=== PATIENT | male | born 1970 | race Caucasian/White ===

== ENCOUNTER 2018-02-16 09:21 | Emergency (ER) | payer OTHER ==
[~2018-02-16] VITALS: Ht 182.9 cm; Wt 95.3 kg
--- NOTE | 2018-02-16 10:32 | ED GENERAL ADULT ---
See Addendum History of Present Illness General Chief Complaint: ETOH/Drug Related Complaint Stated Complaint: REQ DETOX, SENT BY HIGHWATCH Source: patient Exam Limitations: no limitations Vital Signs & Intake/Output Vital Signs & Intake/Output Vital Signs Date Time Temp Pulse Resp B/P B/P Pulse O2 O2 Flow FiO2 Mean Ox Delivery Rate 02/16 1613 98.1 105 20 139/77 02/16 1611 98.1 105 20 139/77 96 Room Air 02/16 1209 98.4 106 20 148/96 02/16 1208 98.4 106 20 148/96 95 Room Air 02/16 1045 96.8 104 18 129/79 02/16 0953 96.8 104 18 129/79 95 Room Air Room Air Allergies Coded Allergies: No Known Allergies (02/16/18) Reconcile Medications Alprazolam 0.5 MG TABLET 1 TAB PO TIDPRN ANXIETY (Reported) Triage Note: PT TO ED FOR HIGHWATCH CLEARANCE FOR ETOH, DENIES DRUG USE. "TRIED TO QUIT IN THE PAST, BUT AFTER 3-4 DAYS I HAD A SEIZURE AND WENT TO [facility] FOR A FEW DAYS AFTER THAT, ABOUT 2 WEEKS AGO". DAILY DRINKIN.7 LITERS VODKA DAILY, DENIES OTHER DRUG USE. LAST DRINK LAST NIGHT INTO THIS MORNING. Triage Nurses Notes Reviewed? yes Onset: Gradual Duration: worse persistent since (SEVERAL YEARS) Timing: recent history Injury Environment: home Severity: moderate No Modifying Factors: none HPI: Patient is a 47-year-old male with history of hypertension, presenting to the emergency department if complaint of requesting alcohol detox. Patient drinks approximately 1.75 L of vodka daily. Last drink was late last night until this morning. Patient also smokes cigarettes. Denies any other drug use. He does report that he had a seizure about 2 weeks ago and was brought to [facility] for evaluation and was admitted and left against advice. Patient decided to stop drinking alcohol in 4 days into his sobriety he had a seizure. No history prior to that of seizures. Patient does report that he takes Xanax as needed daily 0.5 mg 3 times a day that prescribed by his primary care physician who is aware that he drinks alcohol daily. Patient denying any current chest pain palpitations or shortness of breath. He does report that when he doesn't drink he gets shaky. Denies any abdominal pain or diarrhea. No urinary frequency or urgency or dysuria. Denies vision changes or hallucinations. Has been drinking for several years. (Judy Zimmerman) Past History Travel History Traveled to [place] past 21 day No Medical History Any Pertinent Medical History? see below for history Neurological: NONE EENT: NONE Cardiovascular: NONE Respiratory: NONE Gastrointestinal: GERD Hepatic: NONE Renal: NONE Musculoskeletal: NONE Psychiatric: alcohol dependence, anxiety Endocrine: NONE Blood Disorders: NONE Cancer(s): NONE METAL MACHINE OPERATOR/Reproductive: NONE Surgical History Surgical History: non-contributory Psychosocial History What is your primary language Korean Tobacco Use: Current Daily Use Daily Tobacco Use Amount/Type: => 5 Cigarettes daily ETOH Use: alcoholic Illicit Drug Use: benzodiazepines Family History Hx Contributory? No (Judy Zimmerman) Review of Systems Review of Systems Constitutional: Reports: no symptoms. Comments Review of systems: See HPI, All other systems negative. Constitutional, no chills fever or weight loss HEENT: No visual changes no sore throat no congestion Cardiovascular: No chest pain ,palpitation Skin, no jaundice no rashes Respiratory: No dyspnea cough sputum GI: No nausea no vomiting : No dysuria No hematuria Muscle skeletal: no back pain, no neck pain, Neurologic: No numbness no confusion, no headaches Psych: No INCREASED stress anxiety or depression,. Heme/endocrine: No bruising no bleeding no polyuria or polydipsia Immunology: No splenectomy or history of AIDS (Judy Zimmerman) Physical Exam Physical Exam General Appearance: well developed/nourished, no apparent distress, alert, awake , comfortable Comments: Well-developed well-nourished person in no acute distress HEENT: Pupils equally round and reactive to light and accommodation. Nose is atraumatic. Pharynx normal. No swelling or edema. Neck: Normal inspection Back: Nontender Cardiovascular: Regular rate and rhythms Respiratory: Chest nontender. No respiratory distress.breath sounds clear to auscultation bilaterally Extremity: No edema Neuro: Alert oriented x3, motor sensory normal, cranial nerves II through XII grossly intact. Skin: No appreciable rash on exposed skin, skin is warm and dry. Psych: Mood and affect is normal, memory and judgment is normal. Core Measures ACS in differential dx? No CVA/TIA Diagnosis: No Sepsis Present: No Sepsis Focused Exam Completed? No (Judy Zimmerman) Progress Differential Diagnoses I considered the following diagnoses in my evaluation of the patient: Alcohol abuse, polysubstance abuse, alcohol withdrawal, electrolyte abnormality Plan of Care: Orders Procedure Date/time Status CIWA 02/16 1031 Active URINE DRUG SCREEN FOR ER ONLY 02/16 1031 Complete MAGNESIUM 02/16 1031 Complete LIPASE 02/16 1031 Complete ETHANOL 02/16 1031 Complete COMPREHENSIVE METABOLIC PANEL 02/16 1031 Complete CBC WITHOUT DIFFERENTIAL 02/16 1031 Complete Laboratory Tests 02/16/18 1355: Urine Opiates Screen < 100, Methadone Screen < 40, Barbiturate Screen < 60, Ur Phencyclidine Scrn < 6.00, Amphetamines Screen 151, U Benzodiazepines Scrn > 800 H, Urine Cocaine Screen < 50, Urine Cannabis Screen < 5.00 02/16/18 1049: Anion Gap 16, Estimated GFR > 60, BUN/Creatinine Ratio 21.4, Glucose 132 H, Calcium 9.6, Magnesium 1.9, Total Bilirubin 1.0, AST 128 H, ALT 141 H, Alkaline Phosphatase 120, Total Protein 8.2, Albumin 4.9, Globulin 3.3, Albumin/ Globulin Ratio 1.5, Lipase 240, CBC w Diff NO MAN DIFF REQ, RBC 4.87, MCV 100.3 H, MCH 34.3 H, MCHC 34.3, RDW 14.4, MPV 7.5, Gran % 69.8, Lymphocytes % 19.7 L , Monocytes % 7.4, Eosinophils % 2.7, Basophils % 0.4, Absolute Granulocytes 5.9 , Absolute Lymphocytes 1.7, Absolute Monocytes 0.6, Absolute Eosinophils 0.2, Absolute Basophils 0, Serum Alcohol 148.0 Initial ED EKG: none Comments: 02/16/2018 3:29:59 PM patient vitals have been stable. She was scores have been around 2 in the emergency department. Patient medically clear. Discussed with Dr. SINGH patient will be transferred to [facility] for alcohol detoX. [facility] was contacted. Patient compLIANT. (Judy Zimmerman) Departure Departure Time of Disposition: 1514 Disposition: HOME OR SELF CARE Condition: Stable Clinical Impression Primary Impression: Alcohol withdrawal Qualifiers: Complication of substance-induced condition: uncomplicated Qualified Code: F10.230 - Alcohol dependence with withdrawal, uncomplicated Referrals: Unknown (PCP/Family) Additional Instructions: YOU will be transported to [facility] for detox. Return for worsening symptoms or concerns. Departure Forms: Customer Survey General Discharge Information (Judy Zimmerman) PA/PICKING CREW SUPERVISOR Co-Sign Statement Statement: ED Attending supervision documentation- [x] I saw and evaluated the patient. I have also reviewed all the pertinent lab results and diagnostic results. I agree with the findings and the plan of care as documented in the PA's/PICKING CREW SUPERVISOR's documentation. [x] I have reviewed the ED Record and agree with the PA's/PICKING CREW SUPERVISOR's documentation. [] Additions or exceptions (if any) to the PAs/PICKING CREW SUPERVISOR's note and plan are summarized below: [] (Kamran Singh DO) Critical Care Note Critical Care Note Critical Care Time: non-applicable (Judy Zimmerman)
[2018-02-16] MEDS ORDERED: ALPRAZOLAM0.5 M4 PO (10:55)
[2018-02-16 10:57] LABS: ABSOLUTE BASOPHIL COUNT 0 /CUMM (0.0-0.2); ABSOLUTE EOSINOPHIL COUNT 0.2 /CUMM (0.0-0.7); ABSOLUTE GRANULOCYTE CT 5.9 /CUMM (1.4-6.5); ABSOLUTE LYMPH COUNT 1.7 /CUMM (1.2-3.4); ABSOLUTE MONOCYTE COUNT 0.6 /CUMM (0.10-0.60); BASOPHIL % 0.4 % (0.0-2.0); EOSINOPHIL % 2.7 % (0-5); GRANULOCYTE % 69.8 % (42.2-75.2); HEMATOCRIT 48.8 % (42-52); MEAN CORPUSCULAR HGB 34.3 PG (27.0-31.0); MEAN CORPUSCULAR HGB CONC 34.3 G/DL (33.0-37.0); MEAN CORPUSCULAR VOLUME 100.3 FL (80.0-94.0); MEAN PLATELET VOLUME 7.5 FL (7.4-10.4); PLATELET COUNT 162 /CUMM (130-400); RBC DISTRIBUTION WIDTH 14.4 % (11.5-14.5); RED BLOOD CELL CT 4.87 /CUMM (4.70-6.10); WHITE BLOOD CELL COUNT 8.4 /CUMM (4.8-10.8)
== END 2018-02-16 16:39 ==
LOC: ERH 09:21
PROVIDERS: Physician Assistant
DX: F10.239 Alcohol dependence with withdrawal, unspecified (principal)
CPT/HCPCS: 80307; G0480